=== PATIENT | female | born 1990 | race Caucasian/White ===

== ENCOUNTER 2017-05-11 11:25 | Inpatient (IN) | payer BC, OTHER, SELFPAY ==
[2017-05-11] MEDS ORDERED: MAALOX 30 ML SUSP *UDC PO PRN (13:30)
[2017-05-11] MEDS ORDERED: MOM 30ML SUSPENSION UDC PO PRN (13:30)
[2017-05-11] MEDS ORDERED: ACETAMINOPHEN TAB 650MG DOSE (2X325MG) PO PRN (13:30)
[2017-05-11] MEDS ORDERED: JULE1TAB PO (13:40)
[2017-05-11] MEDS ORDERED: VENL37.598 PO (13:40)
[2017-05-11] MEDS ORDERED: TYLE500T78 PO (13:40)
[2017-05-11 16:17] VITALS: BP 121/69
[2017-05-11] MEDS: JULEBER PO SCH (20:50)
[2017-05-12 06:32] VITALS: BP 112/56
--- NOTE | 2017-05-12 08:45 | HPEPDOC ---
Medical History and Physical Date of Admission May 11, 2017 at 13:29 History and Physical PCP: None ATTENDING: Dr. Darron Lee HPI: 26 yo F admitted to [facility] for unspecified depressive disorder, being medically examined today. Pt was transferred from [facility] after medical stabilization for Venlafaxine OD with ETOH. Poison control was consulted, Pt was given activated charcoal and monitored x 12 hrs as per recommendations. No acute medical complaints today. Patient currently denies any neck or back pain. Usually takes Tylenol if needed. Denies any fevers, chills, weakness, fatigue, MULLER, CP, SOB, cough, palpitations, abdominal pain, N/V/D or changes in bowel or bladder habits. PMHx: anxiety depression myofascial pain cervical strain lumbar strain PSHX: Denies SOCHX: Resides in: 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 ROS: As noted in HPI, otherwise 11pt ROS of systems reviewed and remarkable only for LMP 04/29/17. PE: GEN: 26 yo F, appears stated age. Well-nourished, well developed. No acute distress. Alert and oriented x 3. Pleasant, interactive. HEENT: Normocephalic, atraumatic. Pupils are equal, round, and reactive to light. Extraocular movements are intact. No nystagmus appreciated. Sclera are nonicteric. Conjunctiva without injection. Nose midline. Nasal turbinates without bogginess. EACs both patent BL. TMs both visualized and santos with good cone of light, no bulging or erythema. No facial asymmetry. Moist mucous membranes. Dentition fair. Pharynx pink and moist, no cobblestoning. Neck supple , trachea midline. No lymphadenopathy or thyromegaly appreciated. CHEST: Regular rate and rhythm, +S1, +S2 LUNGS: Clear to auscultation bilaterally. No wheezes, rales, or rhonchi. Breathing appears symmetric and easy. Patient is speaking in full sentences. No accessory muscle use. ABD: Round, soft, non-tender, non-distended. +Bowel sounds throughout. No rebound or guarding. No costovertebral angle tenderness. EXT: Pulses 2+ bilaterally dorsalis pedis and radial. No lower extremity edema appreciated. SKIN: [place], dry, warm. Capillary refill <2sec. No rashes. NEURO: Alert and oriented x 3. Cranial nerves III-XII are intact. No focal deficits appreciated. EKG: [facility]. NSR, SA [facility] labs: Na 140 K 3.6 Cl 102 Gluc 149 BUN 5 SCr 0.8 Ca 8.4 AST 11 ALT 14 WBC 15.7 Hgb 16.5 PLT 321 UA neg HCG neg CK 108 TSH 1.31 TOXICOLOGY: Unremarkable A&P: 26 yo F admitted to [facility] for unspecified depressive disorder 1. Psych. Plan per Psychiatry. EKG on file. 2. Nicotine dependence. Patch available. 3. Leukocytosis. Patient is afebrile. Asymptomatic. Recheck CBC. 4. Follow up. No Primary Care Provider. Will attempt to establish PCP on discharge. 5. History of tattoo done unprofessionally. Patient agrees to HIV/hepatitis screening. 6. Continue with OCP from home. 7. History of chronic back pain. Continue with Tylenol 650 mg every 6 hours as needed. 8. Staff member Nelly ÁLVAREZ present throughout exam. Vital Signs Vital Signs Date Time Temp Pulse Resp B/P (MAP) Pulse Ox O2 Delivery O2 Flow Rate FiO2 05/12/17 06:32 98.1 50 16 112/56 (74) 05/11/17 16:17 97 Room Air Home Medications Scheduled (Juleber 0.15-30 mg-Mcg) 1 Tab Tab, 1 TAB PO DAILY Venlafaxine HCl (Venlafaxine HCl ER) 37.5 Mg Capcr, 37.5 MG PO QHS Scheduled PRN Acetaminophen (Tylenol Extra Strength) 500 Mg Tab, 1,000 MG PO QID PRN for PAIN Allergies Coded Allergies: No Known Allergies (Unverified , 05/11/17) Carole Landis May 12, 2017 08:45
[2017-05-12] MEDS: VENLAFAXINE **XR** 75MG CAPSULE PO SCH (09:00)
[2017-05-12 09:33] LABS: MEAN CORPUSCULAR HEMOGLOBIN 32.7 pg (27.0-33.0); MEAN CORPUSCULAR HGB CONC 35.4 g/dl (32.0-36.5); MEAN CORPUSCULAR VOLUME 92.5 fl (80.0-96.0); WHITE BLOOD COUNT 8.7 K/mm3 (4.0-10.0)
[2017-05-12] MEDS: JULEBER PO SCH (10:38)
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
[2017-05-12 18:00] VITALS: BP 131/56
[2017-05-12] MEDS: QUEtiapine FUMARATE 100 MG TAB PO SCH (21:16)
[2017-05-13 06:42] VITALS: BP 100/52
--- NOTE | 2017-05-13 08:51 | IPNPDOC ---
Date Seen The patient was seen on 05/13/17. Progress Note HPI: 26 yo F admitted to [facility] for unspecified depressive disorder. Pt was transferred from [facility] after medical stabilization for Venlafaxine OD with ETOH. Poison control was consulted, Pt was given activated charcoal and monitored x 12 hrs as per recommendations. Requested to reevaluate the pt related to report of vaginal itching and burning. Pt states she has a h/o vaginal candidiasis in the past. No pelvic pain , no discharge. Symptoms similar to what she has had in the past. Denies any fevers, chills, weakness, fatigue, MULLER, CP, SOB, cough, palpitations, abdominal pain, N/V/D or changes in bowel or bladder habits. PMHx: anxiety depression myofascial pain cervical strain lumbar strain PSHX: Denies PE: GEN: 26 yo F, appears stated age. Well-nourished, well developed. No acute distress. Alert and oriented x 3. Pleasant, interactive. HEENT: Normocephalic, atraumatic. Pupils are equal, round, and reactive to light. Extraocular movements are intact. No nystagmus appreciated. Sclera are nonicteric. Conjunctiva without injection. Nose midline. Nasal turbinates without bogginess. EACs both patent BL. TMs both visualized and santos with good cone of light, no bulging or erythema. No facial asymmetry. Moist mucous membranes. Dentition fair. Pharynx pink and moist, no cobblestoning. Neck supple , trachea midline. No lymphadenopathy or thyromegaly appreciated. CHEST: Regular rate and rhythm, +S1, +S2 LUNGS: Clear to auscultation bilaterally. No wheezes, rales, or rhonchi. Breathing appears symmetric and easy. Patient is speaking in full sentences. No accessory muscle use. ABD: Round, soft, non-tender, non-distended. +Bowel sounds throughout. No rebound or guarding. No costovertebral angle tenderness. EXT: Pulses 2+ bilaterally dorsalis pedis and radial. No lower extremity edema appreciated. SKIN: [place], dry, warm. Capillary refill <2sec. No rashes. NEURO: Alert and oriented x 3. Cranial nerves III-XII are intact. No focal deficits appreciated. EKG: [facility]. NSR, SA [facility] labs: Na 140 K 3.6 Cl 102 Gluc 149 BUN 5 SCr 0.8 Ca 8.4 AST 11 ALT 14 WBC 15.7 Hgb 16.5 PLT 321 UA neg HCG neg CK 108 TSH 1.31 TOXICOLOGY: Unremarkable A&P: 26 yo F admitted to [facility] for unspecified depressive disorder 1. Psych. Plan per Psychiatry. EKG on file. 2. Nicotine dependence. Patch available. 3. Leukocytosis. Patient is afebrile. Asymptomatic. Repeat CBC resolved. 4. Follow up. No Primary Care Provider. Will attempt to establish PCP on discharge. 5. History of tattoo done unprofessionally. HIV/hepatitis screening pending. 6. Continue with OCP from home. 7. History of chronic back pain. Continue with Tylenol 650 mg every 6 hours as needed. 8. Vaginal candidiasis. Diflucan po x 1. Pt agrees to STI screening. HIV/ Hepatitis/RPR/Emir/Chlamydia pending. 9. Staff member Syl ÁLVAREZ present throughout exam. VS, I&O, 24H, Fishbone Vital Signs/I&O Vital Signs Date Time Temp Pulse Resp B/P (MAP) Pulse Ox O2 Delivery O2 Flow Rate FiO2 05/13/17 06:42 98.7 57 14 100/52 (68) 05/11/17 16:17 97 Room Air Laboratory Data CBC/BMP Laboratory Tests 05/12/17 09:14 Red Blood Count 4.89, Mean Corpuscular Volume 92.5, Mean Corpuscular Hemoglobin 32.7, Mean Corpuscular Hemoglobin Concent 35.4, Red Cell Distribution Width 12.0 Carole Landis May 13, 2017 08:51
[2017-05-13] MEDS ORDERED: FLUCONAZOLE 50MG TABLET PO ONE (09:00)
[2017-05-13] MEDS: VENLAFAXINE **XR** 75MG CAPSULE PO SCH (09:24)
[2017-05-13] MEDS: JULEBER PO SCH (09:24)
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
[2017-05-13 18:00] VITALS: BP 131/78
[2017-05-13] MEDS: QUEtiapine FUMARATE 100 MG TAB PO SCH (21:43)
[2017-05-13] MEDS: traZODone 50 MG TAB PO PRN (21:43)
[2017-05-14 06:53] VITALS: BP 112/59
[2017-05-14] MEDS: JULEBER PO SCH (09:10)
[2017-05-14] MEDS: VENLAFAXINE **XR** 75MG CAPSULE PO SCH (09:10)
--- NOTE | 2017-05-14 17:14 | MHIPN ---
DATE: 05/14/2017 CHIEF COMPLAINT: Feels better. SUBJECTIVE: She is seen for followup. She is seen in the presence of staff. Says feels less depressed, less anxious, and that her sleep is improved, does not have any suicidal thoughts, says has found her family supportive. MENTAL STATUS EXAMINATION: She is neat. She is cooperative. No agitation. No psychomotor retardation. Affect is fairly broad. Denies any suicidal thoughts or intents. No homicidal ideas of intents. No evidence of any psychosis. Cognition is grossly intact. Judgment is fair, insight fair, possibly improved. ASSESSMENT: 1. Major depressive disorder. 2. Generalized anxiety disorder by history. 3. Rule out adjustment disorder with depressed mood. PLAN: Continue current care, observations. Encourage participation in activities in the unit. She is on venlafaxine and that is to continue at 75 mg daily. She is also on quetiapine 100 mg daily. She is to be discharged soon, should current improvement continue. VITAL SIGNS: Blood pressure 112/59, pulse 59, temperature 98.7.
[2017-05-14 18:00] VITALS: BP 117/56
[2017-05-14] MEDS: traZODone 50 MG TAB PO PRN (21:11)
[2017-05-14] MEDS: QUEtiapine FUMARATE 100 MG TAB PO SCH (21:11)
[2017-05-15 07:00] VITALS: BP 96/51
[2017-05-15] MEDS: VENLAFAXINE **XR** 75MG CAPSULE PO SCH (08:09)
[2017-05-15] MEDS: JULEBER PO SCH (08:10)
--- NOTE | 2017-05-15 16:43 | MHIPN ---
DATE: 05/15/2017 CHIEF COMPLAINT: She says she feels better. SUBJECTIVE: She is seen for followup, in the presence of staff. She says she feels better, and she is not as anxious, not as depressed. Had visitors, and that went well. MENTAL STATUS EXAMINATION: Neat, cooperative. No agitation. Coherent. Affect is reactive. Denies any thoughts of harming herself or anyone else. No evidence of any psychosis. Cognition grossly intact. Judgment good, insight is improved. ASSESSMENT: 1. Major depressive disorder. 2. Generalized anxiety by history. She appears less anxious and feels better. PLAN: Continue current care, observations. She is to continue with Effexor at 75 mg daily. I would suggest using the Seroquel only in the short-term. She is to be encouraged to participate in activities on the unit. VITAL SIGNS: Blood pressure 96/51, pulse 52, temperature 97.9.
[2017-05-15 18:00] VITALS: BP 91/51
[2017-05-15] MEDS: QUEtiapine FUMARATE 100 MG TAB PO SCH (21:01)
[2017-05-15] MEDS: traZODone 50 MG TAB PO PRN (21:01)
[2017-05-16 06:00] VITALS: BP 100/60
[2017-05-16] MEDS: JULEBER PO SCH (09:20)
[2017-05-16] MEDS: VENLAFAXINE **XR** 75MG CAPSULE PO SCH (09:20)
[2017-05-16 18:00] VITALS: BP 106/54
[2017-05-16] MEDS: QUEtiapine FUMARATE 100 MG TAB PO SCH (20:55)
[2017-05-16] MEDS: traZODone 50 MG TAB PO PRN (20:55)
--- NOTE | 2017-05-16 22:53 | MHIPNPDOC ---
[facility] Progress Note Progress Note DATE OF SERVICE: 05/16/17 HISTORY: Patient was transferred from [facility] for an intentional overdose with Effexor VITAL SIGNS: See below. NEW TEST RESULTS: . CURRENT MEDICATIONS: See below. MENTAL STATUS EXAMINATION: General appearance: Patient is a 26-year old female, who is alert, cooperative, with good eye contact, dressed in personal clothes. Speech: Coherent, goal directed Thought processes: Coherent, goal-directed. Thought content: Happy thoughts about her possible discharge tomorrow, goal directed Abstract reasoning and computation: Fair. Description of associations: Good. Description of abnormal or psychotic thoughts: Denies auditory and visual hallucinations, denies thought delusions and denies suicidal or homicidal ideation. Judgment: Improved Insight: Improved Orientation: Oriented 3. Recent and remote memory: Intact. Attention span and concentration: Fair. Fund of knowledge: Adequate. Mood: "I feel well" Affect: Congruent to mood, appropriate, full range DIAGNOSES: 1. Major depressive disorder, severe without psychotic symptoms. 2. Rule out adjustment disorder with depressed mood. 3. Generalized anxiety disorder MANAGEMENT PLAN: Patient's insight and judgement have improved, her mood and affect are brighter, she is goal directed and optimistic. She is happy because her boyfriend came to visit her and things may work or may not work out between them, but she's hopeful. She feels fully supported by her family, she wants to go back to her home and live with her son, she has made out her mind and she wants to look for another job. She will be discharged home tomorrow if she continues to do well. TIME SPENT: 30 minutes. Vital Signs Vital Signs Date Time Temp Pulse Resp B/P (MAP) Pulse Ox O2 Delivery O2 Flow Rate FiO2 05/16/17 18:00 98.4 58 16 106/54 (71) 05/16/17 08:30 Room Air 05/11/17 16:17 97 Current Medications Current Medications Acetaminophen (Tylenol Tab) 650 mg Q6HP PRN PO HEADACHE or DISCOMFORT; Start at 13:30; Stop 06/10/17 at 13:29 Al Hydrox/Mg Hydrox/Simethicone (Mylanta) 30 ml Q4HP PRN PO HEARTBURN/ INDIGESTION; Start 05/11/17 at 13:30; Stop 06/10/17 at 13:29 Home Med (Med Rec Complete!) ASDIRECTED XX ; Start 05/11/17 at 13:45; Stop at 13:45; Status DC Magnesium Hydroxide (Milk Of Magnesia) 30 ml DAILYPRN PRN PO CONSTIPATION; Start 05/11/17 at 13:30; Stop 06/10/17 at 13:29 Miscellaneous (Unresolved Patient Own Med Order) SEE LABEL COMMENTS UNRESOLVED XX ; Start 05/11/17 at 00:01; Stop 05/11/17 at 20:07; Status DC Patient Own Medication (Patient'S Own Med) JOSH 28 DAY TABL... DAILY PO Last administered on 05/16/17 09:20; Start 05/11/17 at 09:00; Stop 06/10/17 at 08:59 Quetiapine Fumarate (SEROquel) 100 mg QHS PO Last administered on 05/16/17 20: 55; Start 05/12/17 at 21:00; Stop 06/11/17 at 20:59 Trazodone HCl (Desyrel) 50 mg QHSP PRN PO INSOMNIA Last administered on 20:55; Start 05/11/17 at 13:30; Stop 06/10/17 at 13:29 Venlafaxine HCl (Effexor Xr) 75 mg DAILY PO Last administered on 05/16/17 09:20; Start 05/12/17 at 09:00; Stop 06/11/17 at 08:59 Allergies Coded Allergies: No Known Allergies (Unverified , 05/11/17) JAN JACOBS MD May 16, 2017 22:53
[2017-05-17 06:00] VITALS: BP 114/55
[2017-05-17] MEDS: JULEBER PO SCH (08:22)
[2017-05-17] MEDS: VENLAFAXINE **XR** 75MG CAPSULE PO SCH (08:22)
[2017-05-17] MEDS ORDERED: VENL75CA2 PO (09:34)
[2017-05-17] MEDS ORDERED: TRAZO50TA PO (09:34)
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
== END 2017-05-17 11:20 | disposition home or self-care (01) | DRG 751 ==
LOC: M ED 11:25 → M ED INP 13:29 → M PSY 15:50
PROVIDERS: ADMIT Psychiatry & Neurology Psychiatry; ATTEND Psychiatry & Neurology Psychiatry
DX: F32.2 Major depressive disorder, single episode, severe without psychotic features (principal); B37.3 Candidiasis of vulva and vagina; F41.1 Generalized anxiety disorder; F17.200 Nicotine dependence, unspecified, uncomplicated; D72.829 Elevated white blood cell count, unspecified; F43.21 Adjustment disorder with depressed mood; M79.7 Fibromyalgia

== ENCOUNTER → 2022-06-17 | Outpatient (REF) ==
[~2022-06-17] MED LIST: JULE1TAB PO; TRAZ1TAB10 PO; TYLE500T78 PO; VENL37.598 PO; VENL75CA2 PO
== END ==
LOC: M EMP 10:08
PROVIDERS: ATTEND Family Medicine
DX: Z00.00 Encounter for general adult medical examination without abnormal findings (principal); Z53.9 Procedure and treatment not carried out, unspecified reason

== ENCOUNTER 2025-03-12 15:01 | Emergency (ER) | payer OTHER ==
[~2025-03-12] VITALS: Ht 157.5 cm; Wt 45.5 kg
[2025-03-12 17:53] VITALS: BP 118/70; TEMP 98.5; O2SAT 96
== END 2025-03-12 19:29 | disposition left against medical advice (07) ==
LOC: M ED 15:01 → EDBD 15:01 → M ED 19:29
DX: Z53.21 Procedure and treatment not carried out due to patient leaving prior to being seen by health care provider (principal)